=== PATIENT | male | born 1990 | race Asian ===

== ENCOUNTER 2020-12-10 21:26 | Emergency (ER) | payer OTHER ==
[~2020-12-10] VITALS: Ht 167.6 cm; Wt 72.7 kg
[2020-12-10] MEDS ORDERED: PERTUSS(ACELL),DIPH,TET VAC/PF 0.5 ML SYRINGE IM. ONE (22:30)
[2020-12-10] MEDS ORDERED: BACITRACIN 0.9 GM PACKET OINTMENT TP ONE (22:30)
[2020-12-11 00:30] VITALS: BP 119/73
== END 2020-12-11 01:05 | disposition home or self-care (01) ==
LOC: EMS 21:33
DX: S01.01XA Laceration without foreign body of scalp, initial encounter (principal); S20.211A Contusion of right front wall of thorax, initial encounter; Y08.89XA Assault by other specified means, initial encounter; Y93.89 Activity, other specified; Y92.89 Other specified places as the place of occurrence of the external cause; Y99.8 Other external cause status
CPT/HCPCS: 12001; 70450; 70486; 71101; 72125; 90471; 90715; 99285

== ENCOUNTER 2020-12-23 17:05 | Emergency (ER) | payer OTHER ==
[~2020-12-23] VITALS: Ht 172.7 cm; Wt 75.0 kg
[2020-12-23 17:06] VITALS: BP 127/77
== END 2020-12-23 17:55 | disposition home or self-care (01) ==
LOC: EMS 17:07
DX: S01.01XD Laceration without foreign body of scalp, subsequent encounter (principal); X58.XXXD Exposure to other specified factors, subsequent encounter
CPT/HCPCS: 99282; Z7502

== ENCOUNTER 2022-08-19 18:54 | Emergency (ER) | payer OTHER ==
[~2022-08-19] VITALS: Ht 172.7 cm; Wt 77.3 kg
[2022-08-20 00:09] VITALS: BP 120/75
== END 2022-08-20 01:03 | disposition left against medical advice (07) ==
LOC: EMS 18:55
DX: Z53.21 Procedure and treatment not carried out due to patient leaving prior to being seen by health care provider (principal)
CPT/HCPCS: 70450; 72125; 99281